=== PATIENT | female | born 1990 | race Two or more races ===

== ENCOUNTER 2017-01-28 19:27 | Emergency (ER) | payer BC, OTHER ==
[~2017-01-28] VITALS: Ht 162.6 cm; Wt 114.3 kg
[2017-01-28] MEDS ORDERED: SODIUM CHLORIDE FLUSH 10ML SYR IVF ONE (20:00)
[2017-01-28] MEDS ORDERED: SODIUM CHLORIDE 0.9% 1,000ML IVBOLUS ONE (20:00)
[2017-01-28] MEDS ORDERED: ONDANSETRON 2MG/ML, 2ML IVPush ONE (20:00)
[2017-01-28 20:24] LABS: ASPARTATE AMINO TRANSFERASE 15 U/L (15-37); BLOOD UREA NITROGEN 17 mg/dL (7-18)
[2017-01-28] MEDS ORDERED: ONDANSETRON 2MG/ML, 2ML ONE (20:31)
[2017-01-28] MEDS ORDERED: MORPHINE SULFATE 4 MG/ML, 1ML ONE ×2 (20:31→22:04)
[2017-01-28] MEDS: MORPHINE SULFATE 4 MG/ML, 1ML IVPush PRN ×2 (20:33→22:03)
[2017-01-28 22:52] VITALS: BP 112/70
== END 2017-01-28 23:53 | disposition home or self-care (01) ==
LOC: ED 23:52
DX: N83.292 Other ovarian cyst, left side (principal)
CPT/HCPCS: 36415; 76830; 80053; 81001; 84703; 85025; 87086; 93005; 96361; 96374; 96375; 99285; J2405; J7030

== ENCOUNTER 2019-04-09 13:20 | Emergency (ER) | payer OTHER ==
[~2019-04-09] VITALS: Ht 162.6 cm; Wt 113.7 kg
[~2019-04-09 13:20] MED LIST: BIRTH CONTROL
[2019-04-09 14:03] LABS: BASOPHILS # (AUTO) 0.06 x10^3/uL (0-0.1); BASOPHILS % (AUTO) 1 % (0-1); EOSINOPHILS # (AUTO) 0.29 x10^3/uL (0-0.4); EOSINOPHILS % (AUTO) 2 % (1-7); LYMPHOCYTES % (AUTO) 27 % (22-44); MD NO; MEAN CORPUSCULAR HEMOGLOBIN 31.4 pg (27.0-34.8); MEAN CORPUSCULAR HGB CONC 33.9 g/dL (32.4-35.8); MEAN CORPUSCULAR VOLUME 92.7 fL (80-100); MEAN PLATELET VOLUME 7.2 fL (7.4-10.4); MONOCYTES % (AUTO) 4 % (2-9); NEUTROPHILS % (AUTO) 66 % (42-75); PLATELET COUNT 382 x10^3/uL (130-400); RED BLOOD COUNT 4.78 x10^6/uL (3.82-5.3); RED CELL DISTRIBUTION WIDTH 13.4 % (9.6-15.2)
[2019-04-09 14:12] LABS: ALBUMIN 3.3 g/dL (3.4-5.0); ANION GAP 4 mmol/L (5-15); CALCIUM 8.6 mg/dL (8.5-10.1); CHLORIDE 108 mmol/L (98-107); CREATININE 0.58 mg/dL (0.55-1.02)
--- NOTE | 2019-04-09 15:04 | NUR ---
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
[2019-04-09] MEDS ORDERED: METFROMIN (16:20)
[2019-04-09] MEDS ORDERED: vitamin D (16:20)
[2019-04-09 16:21] VITALS: BP 129/75
--- NOTE | 2019-04-09 16:21 | NUR ---
Pt ambulates to restroom from ED room with UA cup with steady gait and balance. KIKO.
[2019-04-09] MEDS ORDERED: HYDROcodone/APAP 5/325 TABLET PO ONE (17:30)
[2019-04-09] MEDS ORDERED: HYDROcodone/APAP 5/325 TABLET ONE (17:30)
--- NOTE | 2019-04-09 17:32 | NUR ---
Pt left without d/c education, paperwork, or prescription.
[2019-04-09 17:41] LABS: MICROSCOPIC INDICATED
[2019-04-09 17:42] LABS: CULTURE INDICATED? YES
== END 2019-04-09 17:35 | disposition left against medical advice (07) ==
LOC: ED 15:50
DX: N83.202 Unspecified ovarian cyst, left side (principal)
CPT/HCPCS: 36415; 76830; 80048; 81001; 82040; 84702; 85025; 87086; 99284